=== PATIENT | male | born 1970 | race African-American/Black ===

== ENCOUNTER 2021-01-02 01:04 | Emergency (ER) | payer OTHER ==
[~2021-01-02] VITALS: Ht 193 cm; Wt 93.0 kg
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
[2021-01-02] MEDS ORDERED: KETOROLAC TROMETHAMINE INJ 60 MG/2 ML VIAL IM ONE ×2 (01:30→01:49)
--- NOTE | 2021-01-02 02:29 | NUR ---
Patient is resting comfortably in bed with eyes closed. Easily aroused. VSS
[2021-01-02] MEDS ORDERED: IBUP-1957 PO (03:11)
--- NOTE | 2021-01-02 03:29 | NUR ---
pt is medically stable for d/c. Patient discharged to home in stable condition. Written and verbal after care instructions given. Patient verbalizes understanding of instruction.
[2021-01-02 03:30] VITALS: BP 113/64
== END 2021-01-02 03:31 | disposition home or self-care (01) ==
LOC: ER 01:06
DX: M51.36 Other intervertebral disc degeneration, lumbar region (principal); F17.200 Nicotine dependence, unspecified, uncomplicated; Z79.899 Other long term (current) drug therapy
CPT/HCPCS: 72131; 96372; 99284; J1885

== ENCOUNTER → 2021-05-23 | Emergency (ER) | payer OTHER ==
[~2021-05-23] VITALS: Ht 193 cm; Wt 88.5 kg
[~2021-05-23] MED LIST: IBUP-1957 PO; KETOROLAC TROMETHAMINE INJ 60 MG/2 ML VIAL IM ONE; predniSONE 20 MG TABLET ONE
--- NOTE | 2021-05-23 04:10 | NUR ---
Romina calloway in ED - 05/23/21 at [address] DONE AT BEDSIDE.
--- NOTE | 2021-05-23 04:10 | NUR ---
XR DONE AT BED SIDE.
[2021-05-23] MEDS: KETOROLAC TROMETHAMINE INJ 60 MG/2 ML VIAL IM ONE (04:21)
[2021-05-23] MEDS: predniSONE 50 MG TABLET PO ONE (04:21)
[2021-05-23 05:42] VITALS: BP 122/69
--- NOTE | 2021-05-23 05:43 | NUR ---
Patient discharged to home in stable condition. Written and verbal after care instructions given. Patient verbalizes understanding of instruction.
== END | disposition home or self-care (01) ==
LOC: ER 03:40
DX: M54.50 Low back pain, unspecified (principal); F17.200 Nicotine dependence, unspecified, uncomplicated
CPT/HCPCS: 72110; 96372; 99283; J1885; J7512